=== PATIENT | female | born 1990 ===

== ENCOUNTER 2022-04-17 10:04 | Inpatient (IN) | payer BC ==
[2022-04-17] MEDS ORDERED: Misoprostol 200 MCG Tab PO PRN (11:33)
[2022-04-17] MEDS ORDERED: Butorphanol 1 MG/ML SDV IVPUSH PRN (11:33)
[2022-04-17] MEDS ORDERED: Tranexamic Acid 1,000 MG in Sodium Chloride 0.9% 100 ML IV PRN (11:33)
[2022-04-17] MEDS ORDERED: Carboprost Tromethamine 250 MCG/1 ML Amp IM PRN (11:33)
[2022-04-17] MEDS ORDERED: Methylergonovine 0.2 MG/1 ML Amp IM PRN (11:33)
[2022-04-17] MEDS ORDERED: Sodium Chloride 0.9% 2.5 ML Syringe FLUSH PRN (11:33)
[2022-04-17] MEDS ORDERED: Sodium Chloride 0.9% 20 ML SDV IV PRN (11:33)
[2022-04-17] MEDS ORDERED: Terbutaline 1 MG/ML SDV SUBCUT PRN (11:33)
[2022-04-17] MEDS ORDERED: Lidocaine 1% 50 ML MDV INJECT PRN (11:33)
[2022-04-17] MEDS ORDERED: Water For Irrigation,Sterile 1,000 ML Container IRR PRN (11:33)
[2022-04-17] MEDS ORDERED: Misoprostol 25 MCG (1/4 of 100 MCG) Tab VAG PRN (11:33)
[2022-04-17] MEDS ORDERED: Sodium Chloride 0.9% 10 ML Syringe FLUSH PRN (11:33)
[2022-04-17] MEDS ORDERED: Misoprostol 25 MCG (1/4 of 100 MCG) Tab ONE (11:42)
[2022-04-17] MEDS ORDERED: Oxytocin/0.9 % Sodium Chloride 30 UNIT/500 ML BAG IV SCH ×2 (11:45)
[2022-04-17] MEDS: Misoprostol 25 MCG (1/4 of 100 MCG) Tab VAG PRN ×2 (15:58→20:38)
[2022-04-17] MEDS ORDERED: ePHEDrine 50 MG/ML SDV IVPUSH PRN ×2 (17:26)
[2022-04-17] MEDS ORDERED: Phenylephrine HCl In 0.9% NaCl 1 MG/10 ML Vial IVPUSH PRN (17:26)
[2022-04-17] MEDS ORDERED: Phenylephrine HCl In 0.9% NaCl 1 MG/10 ML Vial IVPUSH SCH (17:30)
[2022-04-17] MEDS ORDERED: Ropivacaine HCl/PF 400 MG in Premix Bag 1 BAG EPIDUR SCH (17:30)
[2022-04-18] MEDS: Misoprostol 25 MCG (1/4 of 100 MCG) Tab VAG PRN (00:36)
[2022-04-18] MEDS: Lactated Ringers 1,000 ML IV SCH ×5 (05:09→20:34)
[2022-04-19] MEDS: Lactated Ringers 1,000 ML IV SCH (01:22)
[2022-04-19] MEDS ORDERED: Bisacodyl 10 MG Supp RECTAL PRN (01:34)
[2022-04-19] MEDS ORDERED: Tranexamic Acid 1,000 MG in Sodium Chloride 0.9% 100 ML IV PRN (01:34)
[2022-04-19] MEDS ORDERED: Acetaminophen 500 MG Tab PO PRN ×2 (01:34)
[2022-04-19] MEDS ORDERED: Ibuprofen 400 MG Tab PO PRN (01:34)
[2022-04-19] MEDS ORDERED: Lanolin 100% Cream 7 GM Tube TOP PRN (01:34)
[2022-04-19] MEDS ORDERED: Methylergonovine 0.2 MG/1 ML Amp IM PRN (01:34)
[2022-04-19] MEDS ORDERED: Docusate Sodium 100 MG Cap PO PRN (01:34)
[2022-04-19] MEDS ORDERED: Benzocaine/Menthol 20%-0.5% Spray 78 GM Cannister TOP PRN (01:34)
[2022-04-19] MEDS ORDERED: Witch Hazel Medicated Pads 40/Jar TOP PRN (01:34)
[2022-04-19] MEDS: Ibuprofen 800 MG Tab PO PRN (14:00)
[2022-04-20 03:13] VITALS: PULSE 78
[2022-04-20 08:04] VITALS: BP 108/62
[2022-04-20] MEDS: Ibuprofen 800 MG Tab PO PRN (09:35)
== END 2022-04-20 13:12 | disposition home or self-care (01) | DRG 560 ==
LOC: MW.OBCHECK 10:04 → MW.OB 10:05 → MW.OBCHECK 11:30 → MW.OB 11:34 → UNDOADMOB 11:34 → OBSVTOIN 04-19 01:12 → INTOOBSV 04-19 01:12 → MW.OB 04-19 04:24
PROVIDERS: ADMIT Obstetrics & Gynecology; ATTEND Obstetrics & Gynecology
PROC: 10D07Z6 Extraction of Products of Conception, Vacuum, Via Natural or Artificial Opening (ICD-10-PCS; principal; 2022-04-19)
PROC: 10907ZC Drainage of Amniotic Fluid, Therapeutic from Products of Conception, Via Natural or Artificial Opening (ICD-10-PCS; 2022-04-19)
PROC: 0KQM0ZZ Repair Perineum Muscle, Open Approach (ICD-10-PCS; 2022-04-19)
PROC: 3E033VJ Introduction of Other Hormone into Peripheral Vein, Percutaneous Approach (ICD-10-PCS; 2022-04-19)
PROC: 3E0R3BZ Introduction of Anesthetic Agent into Spinal Canal, Percutaneous Approach (ICD-10-PCS; 2022-04-19)
PROC: 00HU33Z Insertion of Infusion Device into Spinal Canal, Percutaneous Approach (ICD-10-PCS; 2022-04-19)
DX: O36.5930 Maternal care for other known or suspected poor fetal growth, third trimester, not applicable or unspecified (principal); Z37.0 Single live birth; O70.1 Second degree perineal laceration during delivery; Z3A.39 39 weeks gestation of pregnancy; O99.214 Obesity complicating childbirth; Z20.822 Contact with and (suspected) exposure to COVID-19
CPT/HCPCS: 36415; 51702; 59025; 59409; 82803; 85014; 85018; 85027; 86592; 86850; 86900; 86901; A9270-GY; J0595; J2590; J3490; J7120; U0002